=== PATIENT | male | born 1950 | race Caucasian/White ===

== ENCOUNTER 2022-06-03 11:43 | Outpatient (REF) | payer MEDICARE, SELFPAY ==
[2022-06-03 11:58] LABS: Binax Internal Control QC Valid; Binax Now Covid-19 Ag Positive (Negative); Binax Performed by: HO.BONILM
== END 2022-06-03 11:44 | disposition home or self-care (01) ==
LOC: HO.HMGCLDS 11:43
PROVIDERS: PCP Physician Assistant Medical; Visit Provider Internal Medicine
DX: Z20.822 Contact with and (suspected) exposure to COVID-19 (principal); J06.9 Acute upper respiratory infection, unspecified
CPT/HCPCS: 87811; C9803